=== PATIENT | male | born 1970 | race Caucasian/White ===

== ENCOUNTER → 2016-11-30 | Outpatient (CLI) | payer OTHER ==
--- NOTE | 2016-12-02 19:31 | NEURPT ---
DATE: 11/30/2016 INDICATION: An outpatient study requested by Dr. Madden for a 46-year-old gentleman with schizophre leonid and headaches, currently on Abilify, Remeron and Clozaril. DESCRIPTION OF PROCEDURE: Routine EEG was recorded digitally. Gbumo-vy-nbevv and emlvq-jh-nwe regino ages were recorded and reviewed. All impedances were measured and recorded. FINDINGS: Symmetrically distributed background activity of low to medium amplitude ranging in frequ ency between 8 to 10 cycles per second was seen in the awake state. This activity attenuates with e ye opening. Photic stimulation produces normal driving. Hyperventilation was performed and elicite d no epileptiform transients. When patient gets drowsy and falls asleep, background rhythm gets sli ghtly less organized, occasional slowing of background observed. No epileptiform transients seen. No signs of ongoing electrographic seizures or lateralized slowing . IMPRESSION: Normal study. Correlate clinically. Dictated By: JOJO BEE/COOPER Conf#: [id number] DID#: [id number]
== END | disposition home or self-care (01) ==
LOC: EEG 09:27
DX: G44.209 Tension-type headache, unspecified, not intractable (principal)
CPT/HCPCS: 95819